=== PATIENT | male | born 1995 ===

== ENCOUNTER 2018-03-15 19:46 | Emergency (ER) | payer BC ==
[2018-03-15] MEDS ORDERED: Lidocaine 1%* 5 ML VIAL INJ ONE (20:03)
--- NOTE | 2018-03-15 20:07 | UC ---
Laceration HPI - HPI Summary HPI Summary: This is pilar Lucas documenting for attending Shar Pinto MD. This patient is a 22 year old M presenting to [facility] with a chief complaint of R wrist laceration since 16:00 today. The patient rates the pain 2/10 in severity. He cut himself working on his car. The patient bandaged it himself, but then it started bleeding again once he resumed working. He believes that he got his tetanus shot last year. Patient has a PMHx of diabetes and a FHx of CAD , diabetes, and stroke. - History Of Current Complaint Chief Complaint: UCLaceration Stated Complaint: WRIST LACERATION Time Seen by Provider: 03/15/18 19:59 Hx Obtained From: Patient Laceration Location: Hand - R wrist Mechanism Of Injury: Sharp Trauma Severity: Mild Pain Intensity: 2 Pain Scale Used: 0-10 Numeric Aggravating Factors: Nothing - Allergies/Home Medications Allergies/Adverse Reactions: Allergies Allergy/AdvReac Type Severity Reaction Status Date / Time ANTIBIOTIC - ? NAME Allergy Diarrhea Uncoded 03/15/18 19:56 Home Medications: Home Medications Fexofenadine (NF) [Rere (NF)] 1 tab PO DAILY 03/15/18 [History Confirmed 01/25] Insulin Aspart [Novolog] 03/15/18 [History] PMH/Surg Hx/FS Hx/Imm Hx Endocrine History: Diabetes - Type 1 Cardiovascular History: Cardiac Disease - Denies CAD - Surgical History Surgical History: None - Family History Known Family History: Positive: Cardiac Disease, Diabetes, Other - stroke - Social History Occupation: Student Lives: With Family Alcohol Use: None Substance Use Type: None Smoking Status (MU): Never Smoked Tobacco - Immunization History Most Recent Tetanus Shot: 2017 Review of Systems Constitutional: Fever - Denies fever Musculoskeletal: Other: - R wrist laceration All Other Systems Reviewed And Are Negative: Yes Physical Exam - Summary Physical Exam Summary: General: well-appearing, no pain distress Skin: warm, color reflects adequate perfusion, dry Head: normal Eyes: EOMI, DAMION ENT: normal Neck: supple, nontender Respiratory: CTA, breath sounds present Cardiovascular: RRR Abdomen: soft, nontender Bowel: present Musculoskeletal: R wrist over the ulnar portion there is a 18 mm subcutaneous laceration that is not actively bleeding Neurological: sensory/motor intact, A&O x3 Psychological: affect/mood appropriate Triage Information Reviewed: Yes Vital Signs: Initial Vital Signs Temp 98.2 F 03/15/18 19:52 Pulse 72 03/15/18 19:52 Resp 16 03/15/18 19:52 BP 144/98 03/15/18 19:52 Pulse Ox 100 03/15/18 19:52 Laceration Repair - Laceration Repair Sutures Procedure Summary: Cleaned with Hibiclens and sterile saline. Procedure done on 20:30. Description: Linear - linear and clean Laceration Size After Repair: Length (cm) - 18 mm Anesthesia Used: 1.0% Lido Cleansing Completed Via Routine Prep: Yes Closure Material: Sutures - 4 sutures Suture Of: Skin, SQ Suture Type: Prolene - 5-O Prolene Laceration Course/Dx - Differential Dx - Laceration/Wound Provider Diagnoses: RIGHT WRIST LACERATION Discharge - Sign-Out/Discharge Documenting (check all that apply): Patient Departure - Discharge Plan Condition: Stable Disposition: HOME Patient Education Materials: Care For Your Stitches (ED), Laceration (ED) Referrals: [facility] [Outside] Additional Instructions: FOLLOW UP WITH YOUR DOCTOR. SUTURES OUT IN 8-10 DAYS. GET RECHECKED FOR ANY WORSENING OF YOUR CONDITION; SIGNS OF INFECTION OR QUESTIONS OR CONCERNS. - Billing Disposition and Condition Condition: STABLE Disposition: Home
== END 2018-03-15 21:07 | disposition home or self-care (01) ==
LOC: UCEAST 19:46
DX: S61.511A Laceration without foreign body of right wrist, initial encounter (principal); W26.9XXA Contact with unspecified sharp object(s), initial encounter; Y93.89 Activity, other specified; Y92.9 Unspecified place or not applicable; E10.9 Type 1 diabetes mellitus without complications; Z79.4 Long term (current) use of insulin; Z88.1 Allergy status to other antibiotic agents; Z82.49 Family history of ischemic heart disease and other diseases of the circulatory system; Z83.3 Family history of diabetes mellitus; Z82.3 Family history of stroke
CPT/HCPCS: 12001; 99211; G0463